=== PATIENT | female | born 1990 | race Caucasian/White ===

== ENCOUNTER → 2017-10-06 | Outpatient (CLI) | payer OTHER ==
[2017-10-06 16:16] LABS: BASOPHILS # (AUTO) 0.1 X10^3/uL (0.0-0.1); BASOPHILS % (AUTO) 0.5 % (0.2-1.0); EOSINOPHILS # (AUTO) 0.3 x10^3/uL (0.0-0.2); EOSINOPHILS % (AUTO) 3.1 % (0.9-2.9); HEMATOCRIT 35.2 % (36.0-47.0); HEMOGLOBIN 12.2 g/dL (12.0-16.0); LYMPHOCYTES # (AUTO) 3.1 X10^3/uL (1.3-2.9); LYMPHOCYTES % (AUTO) 30.8 % (21.0-51.0); MEAN CORPUSCULAR HEMOGLOBIN 29.2 pg (27.0-34.0); MEAN CORPUSCULAR HGB CONC 34.6 g/dL (33.0-35.0); MEAN CORPUSCULAR VOLUME 84.4 fL (80.0-100.0); MEAN PLATELET VOLUME 10.5 fL (7.4-11.0); MONOCYTES # (AUTO) 0.7 x10^3/uL (0.3-0.8); MONOCYTES % (AUTO) 6.7 % (0.0-13.0); NEUTROPHILS # (AUTO) 5.9 x10^3/uL (2.2-4.8); NEUTROPHILS % (AUTO) 58.9 % (42.0-75.0); PLATELET COUNT 205 X10^3/uL (150.0-450.0); RED BLOOD COUNT 4.17 X10^6/uL (3.5-5.4); RED CELL DISTRIBUTION WIDTH 12.6 % (11.6-16.5)
[2017-10-06 16:29] LABS: ALBUMIN 3.6 g/dL (3.4-5.0); BILIRUBIN,DIRECT 0.12 mg/dL (0-0.2); TOTAL PROTEIN 8.7 g/dL (6.4-8.2)
[2017-10-12 06:19] LABS: HCV VIRAL LOG 5.4 log IU
== END ==
LOC: LAB 15:27
PROVIDERS: ATTEND Internal Medicine Gastroenterology
DX: B18.2 Chronic viral hepatitis C (principal)
CPT/HCPCS: 36415; 80076; 85025; 85610; 87522

== ENCOUNTER 2017-10-12 09:25 | Outpatient (CLI) | payer OTHER ==
[2017-10-12] MEDS ORDERED: XYLOCAINE 1 % (PLAIN) ONE (10:14)
[2017-10-12] MEDS ORDERED: ROMAZICON INJ 0.5 MG ONE (11:07)
[2017-10-12] MEDS ORDERED: VERSED ONE (11:07)
[2017-10-12 12:37] VITALS: BP 123/57
[2017-10-12] MEDS ORDERED: ZOFRAN INJ 4 MG VIAL IVP ONE (13:20)
--- NOTE | 2017-10-12 20:21 | CT ---
Exam: CT-guided liver biopsy History: 27-year-old female with chronic viral hepatitis. Comparison: Hepatic ultrasound performed on the same day. Technique and results: Written informed consent was obtained the patient prior to beginning the study a. Details of procedur e itself including potential benefits, risks, and alternatives were discussed. Questions were answere d and consent appear to be freely given. A procedural time out was performed prior to beginning the e xam. Patient is placed in a supine position on the CT table. Preliminary imaging was performed of the uppe r abdomen in order to determine appropriate site for percutaneous access. A location in the mid axill gary line over the lateral aspect of the right hepatic lobe was selected. The site was prepped and adelita ped in the standard sterile fashion. 1% lidocaine was used for local anesthesia. A small skin fran wa s made with [address] guidance, an 18 gauge trocar was advanced into the right hepat ic lobe. Through this a 19 gauge Bard core biopsy needle was used to obtain 5 biopsy cores. Specimens were placed in formalin and will be sent for pathologic evaluation. Scans through the upper abdomen demonstrated no evidence of complication. Procedure was well tolerate d. Impression: Technically CT-guided core biopsy of right hepatic lobe, as described above. Reported By:
--- NOTE | 2017-10-12 20:23 | US ---
Exam: Right upper quadrant abdominal ultrasound History: 27-year-old female with chronic viral hepatitis Comparison: None Findings: Liver is normal in size and echotexture with no focal intrahepatic abnormality seen. No intrahepatic ductal dilatation is seen. Gallbladder is normal with no cholelithiasis or gallbladder wall thickening. Common bile duct measure s 3 mm in diameter. Impression: Unremarkable ultrasound of the liver and gallbladder. Reported By:
== END 2017-10-12 15:28 | disposition home or self-care (01) | DRG 443 ==
LOC: RAD 09:25
PROVIDERS: ATTEND Internal Medicine Gastroenterology
PROC: 0FB13ZX Excision of Right Lobe Liver, Percutaneous Approach, Diagnostic (ICD-10-PCS; principal; 2017-10-12)
DX: B18.2 Chronic viral hepatitis C (principal); K76.0 Fatty (change of) liver, not elsewhere classified; K74.0 Hepatic fibrosis
CPT/HCPCS: 76705; 77012; A4222; J2001; J2250; J2405; J3490